=== PATIENT | female | born 1950 | race Caucasian/White ===

== ENCOUNTER 2017-11-07 06:50 | Day surgery (SDC) | payer MEDICARE, BC ==
[~2017-11-07 06:50] MED LIST: Buffered Lidocaine 0.9% SYRIN* 5 ML/SYR SYRINGE INTRADERM ONE
[2017-11-07] MEDS ORDERED: ceFAZolin 2 GM in NS PREMIX(*) 2 GM/100 ML BAG IVPB ONE (07:01)
[2017-11-07] MEDS ORDERED: fentaNYL* 50 MCG/ML 2 ML VIAL (100 MCG VIAL) ONE (08:26)
[2017-11-07] MEDS ORDERED: Midazolam* 1 MG/ML 2 ML VIAL (2 MG) ONE (08:26)
[2017-11-07] MEDS ORDERED: Bupivacaine 0.25% EPI 200,000* 30 ML SDV ONE (08:27)
[2017-11-07] MEDS ORDERED: Lidocain 1% EPI 1:100,000 * 30 ML MDV ONE (08:27)
[2017-11-07] MEDS ORDERED: Acetaminophen TAB* 325 MG PO PRN (08:42)
[2017-11-07] MEDS ORDERED: Naloxone* 0.4 MG/ML 1 ML VIAL IV PRN (08:42)
[2017-11-07] MEDS ORDERED: DiMENhydriNATE IV* 50 MG/ML VIAL IV PUSH PRN (08:42)
[2017-11-07] MEDS ORDERED: Morphine INJ* 2 MG/ML 1 ML SYRINGE (TWO MG - NEW SYRINGE VERSION) IV PRN (08:42)
[2017-11-07] MEDS ORDERED: Ondansetron INJ* 2 MG/ML VIAL IV PRN (08:42)
[2017-11-07] MEDS ORDERED: HYDROcodone/ACETAMIN 5-325 MG* 1 TAB PO PRN (08:42)
[2017-11-07] MEDS ORDERED: Ketorolac INJ* 30 MG/ML 1 ML VIAL IV PRN (08:42)
[2017-11-07] MEDS ORDERED: fentaNYL* 50 MCG/ML 2 ML VIAL (100 MCG VIAL) IV PRN (08:42)
[2017-11-07] MEDS ORDERED: Bupivacaine 0.25% SDV* 30 ML ONE (09:03)
[2017-11-07] MEDS ORDERED: Propofol* 10 MG/ML 20 ML BTL IV PUSH ONE ×2 (09:08→09:57)
[2017-11-07 10:42] VITALS: BP 130/68
== END 2017-11-07 11:03 | disposition home or self-care (01) ==
LOC: OR 06:50
PROVIDERS: ATTEND Plastic Surgery
DX: C44.719 Basal cell carcinoma of skin of left lower limb, including hip (principal); E03.9 Hypothyroidism, unspecified; Z87.891 Personal history of nicotine dependence; F41.8 Other specified anxiety disorders; M19.90 Unspecified osteoarthritis, unspecified site
CPT/HCPCS: 88305; 88331; 88332; J0690; J2250; J2704; J3010

== ENCOUNTER 2020-02-19 15:36 | Observation (INO) ==
[2020-02-19] MEDS ORDERED: NS 0.9% 1000 ml BAG 1,000 ML IV ONE (16:00)
[2020-02-19 16:53] LABS: Hematocrit 42 % (35-47); Hemoglobin 14.4 g/dL (12.0-16.0); Mean Corpuscular HGB Conc 34 g/dL (31-36); Mean Corpuscular Hemoglobin 33 pg (27-31); Mean Corpuscular Volume 96 fL (80-97); Red Blood Count 4.38 10^6 /uL (3.70-4.87); Red Cell Distribution Width 14 % (10-15); White Blood Count 3.7 10^3/uL (3.5-10.8)
[2020-02-19 17:06] LABS: Troponin I 0.01 ng/mL (<0.03)
[2020-02-19 17:09] LABS: Potassium 3.5 mmol/L (3.5-5.0)
[2020-02-19 17:10] LABS: Albumin 3.9 g/dL (3.2-5.2); Albumin/Globulin Ratio 1.3 (1-3); BUN/Creatinine Ratio 13.7 (8-20); C Reactive Protein 12.19 mg/L (<8.01); Calcium 9.3 mg/dL (8.6-10.3); EGFR African American 143.4 (>60); EGFR Non-African American 118.5 (>60); Globulin 2.9 g/dL (2-4); Total Bilirubin 2.5 mg/dL (0.2-1.0); Total Protein 6.8 g/dL (6.4-8.9)
[2020-02-19 17:45] LABS: ABS Eosinophils 0.1 10^3/ul (0-0.6); ABS Lymphocytes 0.8 10^3/ul (1.0-4.8); ABS Monocytes 0.3 10^3/ul (0-0.8); ABS Neutrophils 2.4 10^3/ul (1.5-7.7); Eosinophil % 2.1 %; Lymphocyte % 22.8 %; Mean Platelet Volume 7.6 fL (7.4-10.4); Platelet Count 96 10^3/uL (150-450)
[2020-02-19 18:29] LABS: Influenza A Molecular Negative (Negative); Influenza B Molecular Negative (Negative)
[2020-02-19 21:03] LABS: Urine Bacteria Absent (Absent); Urine Red Blood Cell 3+(>10/hpf) (Absent); Urine White Blood Cell 1+(6-10/hpf) (Absent)
[2020-02-19 21:21] LABS: Urine Squamous Epithelial Cell Present (Absent)
[2020-02-19 21:22] LABS: Urine Appearance Clear; Urine Bilirubin Negative (Negative); Urine Blood 2+ (Negative); Urine Color Yellow; Urine Glucose Negative (Negative); Urine Ketones 1+ (Negative); Urine Nitrite Negative (Negative); Urine Protein Negative (Negative); Urine Urobilinogen Positive (Negative)
[2020-02-20] MEDS ORDERED: Ondansetron 4 mg VIAL 2 MG/ML 2 ml VIAL IV PRN (01:14)
[2020-02-20] MEDS ORDERED: NS 0.9% 1000 ml BAG 1,000 ML IV SCH (01:15)
[2020-02-20] MEDS ORDERED: Enoxaparin 40 MG/0.4 ML SYR SUBCUT SCH (02:00)
[2020-02-20] MEDS: Venlafaxine XR 75 mg PO SCH (07:41)
[2020-02-20] MEDS: Multivitamins/Minerals TAB PO SCH (07:41)
[2020-02-20] MEDS: Cholecalciferol (VIT D3) 1,000 unit TAB PO SCH (07:42)
[2020-02-20] MEDS: Amoxicillin/Clavul 875/125 TAB (Augmentin 875 tab) PO SCH ×2 (11:43→21:54)
[2020-02-20 12:04] LABS: Albumin 3.5 g/dL (3.2-5.2); Albumin/Globulin Ratio 1.3 (1-3); Globulin 2.8 g/dL (2-4); Indirect Bilirubin 1.9 mg/dL (0.3-1.0); Total Bilirubin 2.5 mg/dL (0.2-1.0); Total Protein 6.3 g/dL (6.4-8.9)
[2020-02-20 12:36] LABS: TSH Ultra Thyroid Stim Horm 0.96 mcIU/mL (0.34-5.60)
[2020-02-21 05:50] LABS: ABS Eosinophils 0.2 10^3/ul (0-0.6); ABS Lymphocytes 0.8 10^3/ul (1.0-4.8); ABS Monocytes 0.5 10^3/ul (0-0.8); ABS Neutrophils 2.8 10^3/ul (1.5-7.7); Hematocrit 39 % (35-47); Hemoglobin 13.2 g/dL (12.0-16.0); Lymphocyte % 19.4 %; Mean Corpuscular HGB Conc 34 g/dL (31-36); Mean Corpuscular Hemoglobin 33 pg (27-31); Mean Corpuscular Volume 96 fL (80-97); Mean Platelet Volume 8.3 fL (7.4-10.4); Nucleated Red Blood Cells % 0.2; Platelet Count 91 10^3/uL (150-450); Red Blood Count 4.01 10^6 /uL (3.70-4.87); Red Cell Distribution Width 15 % (10-15); White Blood Count 4.4 10^3/uL (3.5-10.8)
[2020-02-21 06:03] LABS: BUN/Creatinine Ratio 14.6 (8-20); EGFR African American 153.8 (>60); EGFR Non-African American 127.1 (>60); Potassium 3.1 mmol/L (3.5-5.0)
[2020-02-21] MEDS: Multivitamins/Minerals TAB PO SCH (09:21)
[2020-02-21] MEDS: Cholecalciferol (VIT D3) 1,000 unit TAB PO SCH (09:21)
[2020-02-21] MEDS: Amoxicillin/Clavul 875/125 TAB (Augmentin 875 tab) PO SCH ×2 (09:21→21:28)
[2020-02-21] MEDS: Venlafaxine XR 75 mg PO SCH (09:22)
[2020-02-21] MEDS: Dextran 70/Hypromellose Tears Eye Drops 15 ml BTL (for Artificials Tears) BOTH EYES PRN (09:24)
[2020-02-21 12:16] LABS: Albumin 3.6 g/dL (3.2-5.2); Albumin/Globulin Ratio 1.3 (1-3); BUN/Creatinine Ratio 17.4 (8-20); Calcium 8.7 mg/dL (8.6-10.3); EGFR African American 161.6 (>60); EGFR Non-African American 133.5 (>60); Globulin 2.8 g/dL (2-4); Potassium 4.2 mmol/L (3.5-5.0); Total Bilirubin 2.1 mg/dL (0.2-1.0); Total Protein 6.4 g/dL (6.4-8.9)
[2020-02-22] MEDS: Venlafaxine XR 75 mg PO SCH (08:33)
[2020-02-22] MEDS: Amoxicillin/Clavul 875/125 TAB (Augmentin 875 tab) PO SCH ×2 (08:33→21:00)
[2020-02-22] MEDS: Multivitamins/Minerals TAB PO SCH (08:33)
[2020-02-22] MEDS: Cholecalciferol (VIT D3) 1,000 unit TAB PO SCH (08:34)
[2020-02-22] MEDS: Dextran 70/Hypromellose Tears Eye Drops 15 ml BTL (for Artificials Tears) BOTH EYES PRN ×2 (08:35→16:24)
[2020-02-23 07:49] VITALS: BP 124/62
[2020-02-23] MEDS: Dextran 70/Hypromellose Tears Eye Drops 15 ml BTL (for Artificials Tears) BOTH EYES PRN (09:14)
[2020-02-23] MEDS: Cholecalciferol (VIT D3) 1,000 unit TAB PO SCH (09:14)
[2020-02-23] MEDS: Amoxicillin/Clavul 875/125 TAB (Augmentin 875 tab) PO SCH (09:15)
[2020-02-23] MEDS: Venlafaxine XR 75 mg PO SCH (09:15)
[2020-02-23] MEDS: Multivitamins/Minerals TAB PO SCH (09:15)
== END 2020-02-23 09:55 | disposition home or self-care (01) ==
LOC: MED 15:36 → ED 15:36 → MED 02-20 06:41 → SSU 02-21 03:37
PROVIDERS: ADMIT Internal Medicine; ATTEND Internal Medicine

== ENCOUNTER 2020-04-02 03:54 | Inpatient (IN) ==
[2020-04-02] MEDS ORDERED: oxyCODONE/Acetamin 5/325 mg TAB PO ONE (04:49)
[2020-04-02 05:28] LABS: ABS Lymphocytes 0.9 10^3/ul (1.0-4.8); ABS Monocytes 0.6 10^3/ul (0-0.8); ABS Neutrophils 4.8 10^3/ul (1.5-7.7); Eosinophil % 0.5 %; Hematocrit 39 % (35-47); Hemoglobin 13.1 g/dL (12.0-16.0); Lymphocyte % 13.5 %; Mean Corpuscular HGB Conc 34 g/dL (31-36); Mean Corpuscular Hemoglobin 33 pg (27-31); Mean Corpuscular Volume 97 fL (80-97); Platelet Count 159 10^3/uL (150-450); Red Blood Count 4.01 10^6 /uL (3.70-4.87); Red Cell Distribution Width 15 % (10-15); White Blood Count 6.4 10^3/uL (3.5-10.8)
[2020-04-02 05:34] LABS: Albumin 3.9 g/dL (3.2-5.2); Albumin/Globulin Ratio 1.3 (1-3); BUN/Creatinine Ratio 10.2 (8-20); Calcium 8.8 mg/dL (8.6-10.3); EGFR African American 150.2 (>60); EGFR Non-African American 124.1 (>60); Globulin 2.9 g/dL (2-4); Total Bilirubin 1.1 mg/dL (0.2-1.0); Total Protein 6.8 g/dL (6.4-8.9)
[2020-04-02] MEDS ORDERED: Ondansetron 4 mg VIAL 2 MG/ML 2 ml VIAL IV PRN ×2 (06:23→13:27)
[2020-04-02 07:00] LABS: Vitamin D Total 25(OH) 61.6 ng/mL (20-50)
[2020-04-02] MEDS: Venlafaxine XR 75 mg PO SCH (09:19)
[2020-04-02] MEDS: Cholecalciferol (VIT D3) 1,000 unit TAB PO SCH (09:19)
[2020-04-02] MEDS: Multivitamins/Minerals TAB PO SCH (09:19)
[2020-04-02] MEDS ORDERED: ceFAZolin 2 GM PREMIX 2 GM/50 ML BAG ONE (12:57)
[2020-04-02] MEDS ORDERED: Propofol 10 MG/ML 20 ML BTL ONE (13:17)
[2020-04-02] MEDS ORDERED: Rocuronium 50 mg VIAL 10 mg/ml 5 ml VIAL (50 mg) ONE (13:17)
[2020-04-02] MEDS ORDERED: fentaNYL 100 mcg/2 ml 50 MCG/ML VIAL ONE (13:17)
[2020-04-02] MEDS ORDERED: ROPIVACAINE 5 MG/ML 30 ML BTL (0.5%) ONE (13:17)
[2020-04-02] MEDS ORDERED: Lidocaine 2% PF 5 ML VIAL ONE (13:20)
[2020-04-02] MEDS ORDERED: HYDROmorphone 1 MG/1 ML SYRINGE IV PRN (13:27)
[2020-04-02] MEDS ORDERED: fentaNYL 100 mcg/2 ml 50 MCG/ML VIAL IV PRN (13:27)
[2020-04-02] MEDS ORDERED: Naloxone 0.4 mg VIAL 0.4 mg/ml 1 ml VIAL IV PRN (13:27)
[2020-04-02] MEDS ORDERED: Phenylephrine 40 mcg/mL 10mL (400mcg) SYRINGE ONE (13:58)
[2020-04-02] MEDS ORDERED: Dexamethasone IV 4 MG/ML VIAL 1 ml VIAL ONE (14:21)
[2020-04-02] MEDS ORDERED: Ondansetron 4 mg VIAL 2 MG/ML 2 ml VIAL ONE (14:21)
[2020-04-02] MEDS ORDERED: Bupivacaine 0.5% SDV PF 30ML VIAL ONE (14:53)
[2020-04-02] MEDS: ceFAZolin 1 GM X 3 DOSES POST-OP Q8H (AddVan) IVPB SCH (22:09)
[2020-04-03] MEDS: ceFAZolin 1 GM X 3 DOSES POST-OP Q8H (AddVan) IVPB SCH ×2 (06:01→14:16)
[2020-04-03 06:34] LABS: ABS Monocytes 0.9 10^3/ul (0-0.8); ABS Neutrophils 4.7 10^3/ul (1.5-7.7); Eosinophil % 0.3 %; Hematocrit 36 % (35-47); Hemoglobin 12.2 g/dL (12.0-16.0); Lymphocyte % 15.3 %; Mean Corpuscular HGB Conc 34 g/dL (31-36); Mean Corpuscular Hemoglobin 33 pg (27-31); Mean Corpuscular Volume 97 fL (80-97); Mean Platelet Volume 8.8 fL (7.4-10.4); Nucleated Red Blood Cells % 0.1; Platelet Count 130 10^3/uL (150-450); Red Blood Count 3.67 10^6 /uL (3.70-4.87); Red Cell Distribution Width 14 % (10-15); White Blood Count 6.6 10^3/uL (3.5-10.8)
[2020-04-03 06:47] LABS: BUN/Creatinine Ratio 16.9 (8-20); Calcium 8.4 mg/dL (8.6-10.3); EGFR African American 121.2 (>60); EGFR Non-African American 100.2 (>60); Potassium 4.1 mmol/L (3.5-5.0)
[2020-04-03] MEDS: Multivitamins/Minerals TAB PO SCH (08:36)
[2020-04-03] MEDS: Cholecalciferol (VIT D3) 1,000 unit TAB PO SCH (08:36)
[2020-04-03] MEDS: Enoxaparin 40 MG/0.4 ML SYR SUBCUT SCH (08:37)
[2020-04-03] MEDS: Venlafaxine XR 75 mg PO SCH (08:37)
[2020-04-03] MEDS ORDERED: Senna TAB 8.6 mg TAB PO PRN (12:41)
[2020-04-03] MEDS: Polyethylene Glycol 3350 17 GM PACKET PO SCH (13:04)
[2020-04-04 08:20] LABS: ABS Eosinophils 0.1 10^3/ul (0-0.6); ABS Monocytes 0.6 10^3/ul (0-0.8); ABS Neutrophils 4.2 10^3/ul (1.5-7.7); Eosinophil % 1.6 %; Hematocrit 35 % (35-47); Hemoglobin 11.7 g/dL (12.0-16.0); Lymphocyte % 17.6 %; Mean Corpuscular HGB Conc 34 g/dL (31-36); Mean Corpuscular Hemoglobin 33 pg (27-31); Mean Corpuscular Volume 97 fL (80-97); Mean Platelet Volume 8.9 fL (7.4-10.4); Nucleated Red Blood Cells % 0.1; Platelet Count 118 10^3/uL (150-450); Red Blood Count 3.56 10^6 /uL (3.70-4.87); Red Cell Distribution Width 14 % (10-15)
[2020-04-04 08:21] LABS: Calcium 8.2 mg/dL (8.6-10.3); EGFR African American 131.5 (>60); EGFR Non-African American 108.6 (>60); Potassium 4.2 mmol/L (3.5-5.0)
[2020-04-04] MEDS: Multivitamins/Minerals TAB PO SCH (09:47)
[2020-04-04] MEDS: Enoxaparin 40 MG/0.4 ML SYR SUBCUT SCH (09:47)
[2020-04-04] MEDS: Venlafaxine XR 75 mg PO SCH (09:47)
[2020-04-04] MEDS: Polyethylene Glycol 3350 17 GM PACKET PO SCH (09:47)
[2020-04-04] MEDS: Cholecalciferol (VIT D3) 1,000 unit TAB PO SCH (09:47)
[2020-04-05] MEDS: Enoxaparin 40 MG/0.4 ML SYR SUBCUT SCH (09:05)
[2020-04-05] MEDS: Cholecalciferol (VIT D3) 1,000 unit TAB PO SCH (09:05)
[2020-04-05] MEDS: Venlafaxine XR 75 mg PO SCH (09:05)
[2020-04-05] MEDS: Multivitamins/Minerals TAB PO SCH (09:05)
[2020-04-05] MEDS: Polyethylene Glycol 3350 17 GM PACKET PO SCH (09:05)
[2020-04-05] MEDS ORDERED: Morphine 2 MG/ML SYRINGE IV PRN (16:50)
[2020-04-06] MEDS: Enoxaparin 40 MG/0.4 ML SYR SUBCUT SCH (09:35)
[2020-04-06] MEDS: Multivitamins/Minerals TAB PO SCH (09:36)
[2020-04-06] MEDS: Venlafaxine XR 75 mg PO SCH (09:36)
[2020-04-06] MEDS: Cholecalciferol (VIT D3) 1,000 unit TAB PO SCH (09:36)
[2020-04-06] MEDS: Polyethylene Glycol 3350 17 GM PACKET PO SCH (10:17)
[2020-04-07] MEDS: Cholecalciferol (VIT D3) 1,000 unit TAB PO SCH (08:05)
[2020-04-07] MEDS: Enoxaparin 40 MG/0.4 ML SYR SUBCUT SCH (08:05)
[2020-04-07] MEDS: Multivitamins/Minerals TAB PO SCH (08:05)
[2020-04-07] MEDS: Venlafaxine XR 75 mg PO SCH (08:05)
[2020-04-07] MEDS: Polyethylene Glycol 3350 17 GM PACKET PO SCH (08:05)
[2020-04-07 15:57] VITALS: BP 122/56
== END 2020-04-07 17:05 | DRG 494 ==
LOC: ED 03:54 → SSU 03:54 → OBSVTOIN 06:23 → SSU 09:01
PROVIDERS: ADMIT Internal Medicine; ATTEND Internal Medicine

== ENCOUNTER 2021-07-23 04:32 | Inpatient (IN) ==
[2021-07-23 05:25] LABS: ABS Lymphocytes 0.7 10^3/ul (1.0-4.8); ABS Monocytes 0.6 10^3/ul (0-0.8); ABS Neutrophils 5.2 10^3/ul (1.5-7.7); Eosinophil % 0.3 %; Hematocrit 43 % (35-47); Hemoglobin 14.4 g/dL (12.0-16.0); Lymphocyte % 10.9 %; Mean Corpuscular HGB Conc 34 g/dL (31-36); Mean Corpuscular Hemoglobin 34 pg (27-31); Mean Corpuscular Volume 100 fL (80-97); Mean Platelet Volume 8.4 fL (7.4-10.4); Platelet Count 158 10^3/uL (150-450); Red Blood Count 4.26 10^6 /uL (3.70-4.87); Red Cell Distribution Width 14 % (10-15); White Blood Count 6.5 10^3/uL (3.5-10.8)
[2021-07-23 05:34] LABS: Activated Partial Thrombo Time 27.9 seconds (26.0-38.0); INR 1.49 (0.86-1.15)
[2021-07-23 06:12] LABS: ALT 18 U/L (7-52); Albumin 3.1 g/dL (3.2-5.2); Albumin/Globulin Ratio 1.4 (1-3); Alkaline Phosphatase 119 U/L (35-149); Amylase < 10 U/L (29-103); Blood Urea Nitrogen 12 mg/dL (6-24); C Reactive Protein 6.99 mg/L (<8.01); CO2 Carbon Dioxide 21 mmol/L (22-32); Calcium 7.7 mg/dL (8.6-10.3); Chloride 106 mmol/L (101-111); Globulin 2.2 g/dL (2-4); Glucose 78 mg/dL (70-100); Lipase 12 U/L (11.0-82.0); Sodium 138 mmol/L (135-145); Total Protein 5.3 g/dL (6.4-8.9); eGFR CKD-EPI 97.6 (>60)
[2021-07-23 06:26] LABS: Anion Gap 11 mmol/L (2-11)
[2021-07-23 07:58] LABS: Potassium Redraw 3.6 mmol/L (3.5-5.0)
[2021-07-23 10:16] LABS: High Sensitivity Troponin 1 Hr 16 pg/mL (<15)
[2021-07-23] MEDS ORDERED: Lorazepam PYXIS KEY PRN (10:45)
[2021-07-23] MEDS ORDERED: LORazepam 2 mg VIAL 1 ml IV PUSH ONE (10:45)
[2021-07-23] MEDS ORDERED: Thiamine 100 MG/ML 2 ml VIAL (200 mg) IM ONE (12:21)
[2021-07-23] MEDS ORDERED: Morphine 2 MG/ML SYRINGE IV PRN (12:21)
[2021-07-23] MEDS ORDERED: Magnesium Hydroxide LIQ 30 ML UDC PO PRN (12:23)
[2021-07-23] MEDS ORDERED: Ondansetron 4 mg VIAL 2 MG/ML 2 ml VIAL IV PRN (12:23)
[2021-07-23] MEDS ORDERED: Al Hydrox/Mg Hydrox/Simet LIQ 30 ML UDC PO PRN (12:23)
[2021-07-23] MEDS ORDERED: Pantoprazole VIAL 40 MG VIAL IV SCH (13:00)
[2021-07-23 13:16] LABS: Alcohol, S < 13 mg/dL (<13); Prealbumin 12 mg/dL (18-38)
[2021-07-23 13:32] LABS: Magnesium 1.2 mg/dL (1.9-2.7)
[2021-07-23] MEDS ORDERED: Magnesium Sulfate 2 gm BAG 2 GM/50 ML BAG IVPB ONE ×2 (13:39→14:22)
[2021-07-23 15:06] LABS: Erythrocyte Sed Rate 0 mm/Hr (0-29)
[2021-07-23] MEDS: LORazepam 2 mg VIAL 1 ml IV PUSH SCH ×2 (15:22→17:22)
[2021-07-23] MEDS: NS 0.9% 1000 ml BAG 1,000 ML IV SCH ×3 (16:27→21:06)
[2021-07-23] MEDS ORDERED: Flumazenil 0.5 mg/5 ml 0.1 MG/ML 5 ml VIAL ONE ×2 (19:19→21:12)
[2021-07-23] MEDS ORDERED: Flumazenil 0.5 mg/5 ml 0.1 MG/ML 5 ml VIAL IV ONE (20:00)
[2021-07-23 20:50] LABS: ABS Lymphocytes 0.8 10^3/ul (1.0-4.8); ABS Monocytes 0.9 10^3/ul (0-0.8); ABS Neutrophils 7.1 10^3/ul (1.5-7.7); Eosinophil % 0.3 %; Hematocrit 38 % (35-47); Hemoglobin 12.6 g/dL (12.0-16.0); Lymphocyte % 8.8 %; Mean Corpuscular HGB Conc 33 g/dL (31-36); Mean Corpuscular Hemoglobin 33 pg (27-31); Mean Corpuscular Volume 101 fL (80-97); Mean Platelet Volume 8.2 fL (7.4-10.4); Platelet Count 147 10^3/uL (150-450); Red Blood Count 3.79 10^6 /uL (3.70-4.87); Red Cell Distribution Width 14 % (10-15); White Blood Count 8.8 10^3/uL (3.5-10.8)
[2021-07-23 21:02] LABS: INR 1.46 (0.86-1.15)
[2021-07-23] MEDS: Pantoprazole VIAL 40 MG VIAL IV SCH (21:06)
[2021-07-23 21:52] LABS: Albumin 3.1 g/dL (3.2-5.2); Albumin/Globulin Ratio 1.5 (1-3); Calcium 8.1 mg/dL (8.6-10.3); Globulin 2.1 g/dL (2-4); Magnesium 2.7 mg/dL (1.9-2.7); Potassium 3.7 mmol/L (3.5-5.0); Total Bilirubin 1.9 mg/dL (0.2-1.0); Total Protein 5.2 g/dL (6.4-8.9); eGFR CKD-EPI 76.6 (>60)
[2021-07-23] MEDS ORDERED: Enoxaparin 40 MG/0.4 ML SYR SUBCUT SCH (22:00)
[2021-07-23 22:06] LABS: TSH Ultra Thyroid Stim Horm 1.92 mcIU/mL (0.34-5.60)
[2021-07-23 22:20] LABS: PCO2 Arterial 45 mmHg (35-45); PO2 Arterial 86 mmHg (80-100)
[2021-07-24 03:32] LABS: Urine Appearance Clear; Urine Bilirubin Negative (Negative); Urine Blood Negative (Negative); Urine Color Yellow; Urine Glucose Negative (Negative); Urine Ketones Negative (Negative); Urine Nitrite Negative (Negative); Urine Protein Negative (Negative); Urine Specific Gravity 1.016 (1.002-1.030); Urine Urobilinogen Positive (Negative)
[2021-07-24 03:40] LABS: Urine Benzodiazepine Screen None Detected (None Detect); Urine Cannabinoids Screen None Detected (None Detect); Urine Opiates Screen Presumptive Positive (None Detect)
[2021-07-24 04:28] LABS: Urine Bacteria Absent (Absent); Urine Red Blood Cell Trace(0-2/hpf) (Absent); Urine White Blood Cell 2+(11-20/hpf) (Absent)
[2021-07-24 06:00] LABS: ABS Eosinophils 0.1 10^3/ul (0-0.6); ABS Lymphocytes 1.5 10^3/ul (1.0-4.8); ABS Monocytes 0.5 10^3/ul (0-0.8); ABS Neutrophils 3.5 10^3/ul (1.5-7.7); Eosinophil % 1.8 %; Hematocrit 36 % (35-47); Hemoglobin 12.1 g/dL (12.0-16.0); Lymphocyte % 27.1 %; Mean Corpuscular HGB Conc 34 g/dL (31-36); Mean Corpuscular Hemoglobin 34 pg (27-31); Mean Corpuscular Volume 102 fL (80-97); Mean Platelet Volume 8.1 fL (7.4-10.4); Platelet Count 116 10^3/uL (150-450); Red Blood Count 3.53 10^6 /uL (3.70-4.87); Red Cell Distribution Width 14 % (10-15); White Blood Count 5.7 10^3/uL (3.5-10.8)
[2021-07-24 06:33] LABS: ALT 18 U/L (7-52); AST 59 U/L (13-39); Albumin 2.9 g/dL (3.2-5.2); Albumin/Globulin Ratio 1.5 (1-3); Alkaline Phosphatase 110 U/L (35-149); Anion Gap 3 mmol/L (2-11); Blood Urea Nitrogen 13 mg/dL (6-24); CO2 Carbon Dioxide 28 mmol/L (22-32); Calcium 7.7 mg/dL (8.6-10.3); Chloride 107 mmol/L (101-111); Globulin 1.9 g/dL (2-4); Glucose 67 mg/dL (70-100); Potassium 4.4 mmol/L (3.5-5.0); Sodium 138 mmol/L (135-145); Total Protein 4.8 g/dL (6.4-8.9); eGFR CKD-EPI 92.2 (>60)
[2021-07-24 06:57] LABS: Folate > 20.00 ng/mL (5.90-24.80)
[2021-07-24 06:58] LABS: Vitamin B12 544 pg/mL (180-914)
[2021-07-24] MEDS: Venlafaxine XR 75 mg PO SCH (08:13)
[2021-07-24] MEDS: Multivitamins/Minerals TAB PO SCH (08:13)
[2021-07-24] MEDS ORDERED: Thiamine 100 MG/ML 2 ml VIAL 500 MG in NS 0.9% 250 ml 250 ML IV ONE (08:24)
[2021-07-24] MEDS: NORMOSOL-R pH 7.4 1000 mL BAG 1,000 ML IV SCH ×2 (08:29→20:27)
[2021-07-24] MEDS: Pantoprazole VIAL 40 MG VIAL IV SCH ×2 (08:29→20:26)
[2021-07-24] MEDS ORDERED: Dexmedetomidine 1,000 MCG in NS 0.9% 250 ml 240 ML IV SCH (11:00)
[2021-07-24] MEDS ORDERED: Lorazepam PYXIS KEY ONE (15:33)
[2021-07-24] MEDS ORDERED: LORazepam 2 mg VIAL 1 ml ONE ×2 (15:33→23:57)
[2021-07-24] MEDS ORDERED: LORazepam 2 mg VIAL 1 ml IV PUSH ONE ×2 (15:45→23:55)
[2021-07-24] MEDS ORDERED: Lorazepam PYXIS KEY PRN ×3 (15:45→23:55)
[2021-07-24] MEDS ORDERED: Haloperidol 5 mg/ml SDV IV/IM 5 MG/ML AMP IV SLOW PU ONE (15:45)
[2021-07-24] MEDS ORDERED: Haloperidol 5 mg/ml SDV IV/IM 5 MG/ML AMP ONE (15:47)
[2021-07-24] MEDS ORDERED: Succinylcholine 200 mg VIAL 20 mg/ml 10 ml VIAL (200 mg) ONE (16:19)
[2021-07-24] MEDS ORDERED: Propofol 10 mg/ml 100 ML BTL 100 ML ONE (16:24)
[2021-07-24] MEDS ORDERED: Rocuronium 50 mg VIAL 10 mg/ml 5 ml VIAL (50 mg) ONE (16:24)
[2021-07-24] MEDS ORDERED: Propofol 10 MG/ML 20 ML BTL ONE (16:30)
[2021-07-24] MEDS ORDERED: Midazolam 10 mg/10 ml VIAL 1 mg/ml 10 ml VIAL (10 mg) ONE (16:30)
[2021-07-24] MEDS ORDERED: Etomidate 40 mg/20 ml (2 MG/ML) 20 ml VIAL (40 mg) ONE (16:30)
[2021-07-24] MEDS: Propofol 10 mg/ml 100 ML BTL 100 ML IV SCH ×2 (16:30→23:43)
[2021-07-24] MEDS ORDERED: cefTRIAXone 1 gm/50 mL D5W 1 GM/50 ML BAG IV SCH (16:30)
[2021-07-24] MEDS ORDERED: Enoxaparin 40 MG/0.4 ML SYR SUBCUT SCH (18:00)
[2021-07-24] MEDS ORDERED: fentaNYL 100 mcg/2 ml 50 MCG/ML VIAL IV SLOW PU PRN (19:50)
[2021-07-24] MEDS ORDERED: LORazepam 2 mg VIAL 1 ml IV PUSH PRN ×2 (20:06→21:11)
[2021-07-24] MEDS: Chlorhexidine MOUTHWASH 0.12% 15 ML UDC TOPICAL SCH ×2 (20:26→23:07)
[2021-07-24] MEDS ORDERED: Lactated Ringers 500 ml BAG 500 ML IV ONE (21:11)
[2021-07-24] MEDS: Thiamine 100 MG/ML 2 ml VIAL 500 MG in NS 0.9% 250 ml 250 ML IV SCH (23:37)
[2021-07-25] MEDS: Acetaminophen IV 1 GM/100ML 100 ML IV PRN (00:35)
[2021-07-25] MEDS ORDERED: Lactated Ringers 500 ml BAG 500 ML IV ONE (01:03)
[2021-07-25 02:56] LABS: ABS Eosinophils 0.1 10^3/ul (0-0.6); ABS Lymphocytes 0.4 10^3/ul (1.0-4.8); ABS Monocytes 0.2 10^3/ul (0-0.8); ABS Neutrophils 4.1 10^3/ul (1.5-7.7); Eosinophil % 1.6 %; Hematocrit 31 % (35-47); Hemoglobin 10.6 g/dL (12.0-16.0); Lymphocyte % 8.7 %; Mean Corpuscular HGB Conc 34 g/dL (31-36); Mean Corpuscular Hemoglobin 36 pg (27-31); Mean Corpuscular Volume 104 fL (80-97); Mean Platelet Volume 8.9 fL (7.4-10.4); Nucleated Red Blood Cells % 0.4; Platelet Count 89 10^3/uL (150-450); Red Blood Count 2.98 10^6 /uL (3.70-4.87); Red Cell Distribution Width 14 % (10-15); White Blood Count 4.8 10^3/uL (3.5-10.8)
[2021-07-25] MEDS ORDERED: Norepinephrine 16MCG/ML BAGD5W 4,000 MCG/250 ML BAG IV SCH (03:00)
[2021-07-25 03:10] LABS: ALT 18 U/L (7-52); Albumin 2.6 g/dL (3.2-5.2); Albumin/Globulin Ratio 1.9 (1-3); Alkaline Phosphatase 85 U/L (35-149); Anion Gap 8 mmol/L (2-11); Blood Urea Nitrogen 17 mg/dL (6-24); CO2 Carbon Dioxide 20 mmol/L (22-32); Calcium 6.9 mg/dL (8.6-10.3); Chloride 102 mmol/L (101-111); Globulin 1.4 g/dL (2-4); Glucose 68 mg/dL (70-100); Magnesium 1.5 mg/dL (1.9-2.7); Sodium 130 mmol/L (135-145); eGFR CKD-EPI 94.7 (>60)
[2021-07-25 03:46] LABS: Potassium, Whole Blood 3.4 mmol/L (3.4-4.5)
[2021-07-25 03:59] LABS: Albumin 2.5 g/dL (3.2-5.2); Albumin/Globulin Ratio 1.5 (1-3); Calcium 7.1 mg/dL (8.6-10.3); Globulin 1.7 g/dL (2-4); Potassium 3.6 mmol/L (3.5-5.0); Total Bilirubin 1.1 mg/dL (0.2-1.0); Total Protein 4.2 g/dL (6.4-8.9); eGFR CKD-EPI 94.3 (>60)
[2021-07-25] MEDS: Chlorhexidine MOUTHWASH 0.12% 15 ML UDC TOPICAL SCH ×6 (05:15→23:18)
[2021-07-25] MEDS: Propofol 10 mg/ml 100 ML BTL 100 ML IV SCH ×2 (05:16→17:33)
[2021-07-25] MEDS: Multivitamins/Minerals TAB PO SCH ×2 (08:30→18:27)
[2021-07-25] MEDS: Thiamine 100 MG/ML 2 ml VIAL 500 MG in NS 0.9% 250 ml 250 ML IV SCH ×3 (08:30→23:11)
[2021-07-25] MEDS: Venlafaxine XR 75 mg PO SCH ×2 (08:31→18:26)
[2021-07-25] MEDS: Pantoprazole VIAL 40 MG VIAL IV SCH (08:31)
[2021-07-25] MEDS ORDERED: Rocuronium 50 mg VIAL 10 mg/ml 5 ml VIAL (50 mg) ONE (09:01)
[2021-07-25] MEDS ORDERED: Hydrocortisone INJ 100 MG/2ML 2 ML VIAL IV ONE (09:14)
[2021-07-25] MEDS ORDERED: Iohexol 180 (CONTRAST) 20 ML SDV IV ONE (09:15)
[2021-07-25] MEDS ORDERED: fentaNYL 100 mcg/2 ml 50 MCG/ML VIAL ONE (09:20)
[2021-07-25] MEDS ORDERED: fentaNYL 100 mcg/2 ml 50 MCG/ML VIAL IV SLOW PU ONE (09:20)
[2021-07-25] MEDS ORDERED: Rocuronium 50 mg VIAL 10 mg/ml 5 ml VIAL (50 mg) IV ONE (10:00)
[2021-07-25] MEDS ORDERED: cefTRIAXone 2 gm/50 mL D5W 2 GM/50 ML BAG IV ONE (10:15)
[2021-07-25 11:38] LABS: ABS Eosinophils 0.1 10^3/ul (0-0.6); ABS Lymphocytes 0.6 10^3/ul (1.0-4.8); ABS Monocytes 0.3 10^3/ul (0-0.8); ABS Neutrophils 3.4 10^3/ul (1.5-7.7); Eosinophil % 1.5 %; Hematocrit 33 % (35-47); Hemoglobin 11.3 g/dL (12.0-16.0); Lymphocyte % 13.1 %; Mean Corpuscular HGB Conc 34 g/dL (31-36); Mean Corpuscular Hemoglobin 35 pg (27-31); Mean Corpuscular Volume 102 fL (80-97); Mean Platelet Volume 8.2 fL (7.4-10.4); Platelet Count 82 10^3/uL (150-450); Red Blood Count 3.27 10^6 /uL (3.70-4.87); Red Cell Distribution Width 14 % (10-15); White Blood Count 4.3 10^3/uL (3.5-10.8)
[2021-07-25] MEDS: NORMOSOL-R pH 7.4 1000 mL BAG 1,000 ML IV SCH ×2 (11:45→23:51)
[2021-07-25] MEDS: KCL 20 MEQ/100 ML IVPREMIX 20 MEQ/100 ML BAG IV SCH ×2 (11:45→14:52)
[2021-07-25 12:55] LABS: High Sensitivity Troponin 1 Hr 52 pg/mL (<15)
[2021-07-25] MEDS: Pantoprazole 80 mg in NS BAG 80 MG/250 ML BAG IV SCH ×2 (12:57→23:04)
[2021-07-25] MEDS ORDERED: Iohexol 350 (CONTRAST) 500 ML MDV IV ONE (15:52)
[2021-07-25] MEDS ORDERED: Hydrocortisone INJ 100 MG/2ML 2 ML VIAL IV SCH (17:00)
[2021-07-25 17:32] LABS: ABS Lymphocytes 0.1 10^3/ul (1.0-4.8); ABS Monocytes 0.1 10^3/ul (0-0.8); ABS Neutrophils 4.8 10^3/ul (1.5-7.7); Eosinophil % 0.1 %; Hematocrit 33 % (35-47); Lymphocyte % 2.4 %; Mean Corpuscular HGB Conc 33 g/dL (31-36); Mean Corpuscular Hemoglobin 33 pg (27-31); Mean Corpuscular Volume 101 fL (80-97); Mean Platelet Volume 8.8 fL (7.4-10.4); Nucleated Red Blood Cells % 0.1; Platelet Count 95 10^3/uL (150-450); Red Blood Count 3.29 10^6 /uL (3.70-4.87); Red Cell Distribution Width 14 % (10-15)
[2021-07-25 18:05] LABS: Albumin 2.5 g/dL (3.2-5.2); Albumin/Globulin Ratio 1.5 (1-3); Calcium 7.1 mg/dL (8.6-10.3); Globulin 1.7 g/dL (2-4); Potassium 4.3 mmol/L (3.5-5.0); Total Bilirubin 0.9 mg/dL (0.2-1.0); Total Protein 4.2 g/dL (6.4-8.9); eGFR CKD-EPI 102.1 (>60)
[2021-07-25 20:14] LABS: Hematocrit 33 % (35-47); Hemoglobin 11.1 g/dL (12.0-16.0); Mean Corpuscular HGB Conc 33 g/dL (31-36); Mean Corpuscular Hemoglobin 34 pg (27-31); Mean Corpuscular Volume 103 fL (80-97); Mean Platelet Volume 8.5 fL (7.4-10.4); Platelet Count 87 10^3/uL (150-450); Red Blood Count 3.22 10^6 /uL (3.70-4.87); Red Cell Distribution Width 14 % (10-15); White Blood Count 5.5 10^3/uL (3.5-10.8)
[2021-07-25 21:07] LABS: Macrocytosis 2+
[2021-07-25 21:08] LABS: ABS Lymphocytes 0.2 10^3/ul (1.0-4.8); ABS Monocytes 0.7 10^3/ul (0-0.8); ABS Neutrophils 4.7 10^3/ul (1.5-7.7)
[2021-07-25] MEDS: Sucralfate 1 gm SUSP 1 GM/10 ML UDC PO SCH (21:22)
[2021-07-26] MEDS: Propofol 10 mg/ml 100 ML BTL 100 ML IV SCH ×3 (04:05→20:14)
[2021-07-26] MEDS: Chlorhexidine MOUTHWASH 0.12% 15 ML UDC TOPICAL SCH ×6 (04:06→23:23)
[2021-07-26 04:40] LABS: ABS Lymphocytes 0.3 10^3/ul (1.0-4.8); ABS Monocytes 0.3 10^3/ul (0-0.8); ABS Neutrophils 5.6 10^3/ul (1.5-7.7); Eosinophil % 0.1 %; Hematocrit 32 % (35-47); Hemoglobin 10.7 g/dL (12.0-16.0); Lymphocyte % 4.2 %; Mean Corpuscular HGB Conc 34 g/dL (31-36); Mean Corpuscular Hemoglobin 34 pg (27-31); Mean Corpuscular Volume 101 fL (80-97); Mean Platelet Volume 8.8 fL (7.4-10.4); Platelet Count 109 10^3/uL (150-450); Red Blood Count 3.14 10^6 /uL (3.70-4.87); Red Cell Distribution Width 14 % (10-15); White Blood Count 6.1 10^3/uL (3.5-10.8)
[2021-07-26 06:10] LABS: Calcium 7.3 mg/dL (8.6-10.3); Magnesium 1.7 mg/dL (1.9-2.7); Potassium 3.6 mmol/L (3.5-5.0)
[2021-07-26 06:18] LABS: Phosphorus 2.2 mg/dL (2.5-5.0)
[2021-07-26] MEDS: Sucralfate 1 gm SUSP 1 GM/10 ML UDC PO SCH (08:23)
[2021-07-26] MEDS: Thiamine 100 MG/ML 2 ml VIAL 500 MG in NS 0.9% 250 ml 250 ML IV SCH ×2 (08:40→15:48)
[2021-07-26] MEDS: Pantoprazole 80 mg in NS BAG 80 MG/250 ML BAG IV SCH ×2 (08:41→17:44)
[2021-07-26] MEDS ORDERED: Magnesium Sulfate IV 3 GM in NS 0.9% 100 ml BAG 100 ML IVPB ONE (08:53)
[2021-07-26] MEDS ORDERED: Magnesium Sulfate 2 GM IV (Premix) IVPB ONE (09:00)
[2021-07-26] MEDS ORDERED: Magnesium Sulfate 1 GM IV 1 GM/100 ML BAG IV ONE (09:00)
[2021-07-26] MEDS ORDERED: Multivitamins ADULT w/MIN LIQ 15 ML UDC PO SCH (09:00)
[2021-07-26] MEDS ORDERED: Potassium Phosphate IV 15 MMOLE in NS 0.9% 250 ml 250 ML IVPB ONE (09:15)
[2021-07-26] MEDS ORDERED: Magnesium Hydroxide LIQ 30 ML UDC NG TUBE PRN (10:01)
[2021-07-26] MEDS ORDERED: Al Hydrox/Mg Hydrox/Simet LIQ 30 ML UDC NG TUBE PRN (10:02)
[2021-07-26] MEDS: CMCS: Venlafaxine 25 mg TAB (NF) NG TUBE SCH (10:54)
[2021-07-26] MEDS ORDERED: CMCS: Venlafaxine 25 mg TAB (NF) PO SCH (11:00)
[2021-07-26] MEDS: Venlafaxine XR 75 mg PO SCH (11:06)
[2021-07-26] MEDS: cefTRIAXone 1 gm/50 mL D5W 1 GM/50 ML BAG IV SCH (12:50)
[2021-07-26] MEDS: Sucralfate 1 gm SUSP 1 GM/10 ML UDC NG TUBE SCH ×3 (15:48→20:20)
[2021-07-26 21:41] LABS: Hematocrit 31 % (35-47); Hemoglobin 10.1 g/dL (12.0-16.0)
[2021-07-27] MEDS: Propofol 10 mg/ml 100 ML BTL 100 ML IV SCH (01:39)
[2021-07-27] MEDS ORDERED: Lactated Ringers 1000 ml BAG 1,000 ML IV ONE (05:04)
[2021-07-27 05:20] LABS: Hematocrit 28 % (35-47); Hemoglobin 9.4 g/dL (12.0-16.0); Mean Corpuscular HGB Conc 33 g/dL (31-36); Mean Corpuscular Hemoglobin 34 pg (27-31); Mean Corpuscular Volume 101 fL (80-97); Mean Platelet Volume 8.8 fL (7.4-10.4); Platelet Count 109 10^3/uL (150-450); Red Blood Count 2.79 10^6 /uL (3.70-4.87); Red Cell Distribution Width 15 % (10-15); White Blood Count 4.5 10^3/uL (3.5-10.8)
[2021-07-27] MEDS: Chlorhexidine MOUTHWASH 0.12% 15 ML UDC TOPICAL SCH ×6 (05:20→23:06)
[2021-07-27] MEDS: Pantoprazole 80 mg in NS BAG 80 MG/250 ML BAG IV SCH ×2 (05:21→14:54)
[2021-07-27] MEDS: Levothyroxine 100 MCG/5 ML VIAL IV SCH (05:22)
[2021-07-27 05:35] LABS: Calcium 7.2 mg/dL (8.6-10.3); Magnesium 1.8 mg/dL (1.9-2.7); Phosphorus 2.4 mg/dL (2.5-5.0); Potassium 3.3 mmol/L (3.5-5.0); eGFR CKD-EPI 93.6 (>60)
[2021-07-27 08:01] LABS: Macrocytosis 1+
[2021-07-27] MEDS ORDERED: Magnesium Sulfate 2 gm BAG 2 GM/50 ML BAG IVPB ONE (08:01)
[2021-07-27] MEDS ORDERED: Potassium Chloride LIQUID 20 MEQ/15 ML LIQUID PO ONE ×2 (08:01→21:17)
[2021-07-27 08:02] LABS: ABS Eosinophils 0.1 10^3/ul (0-0.6); ABS Monocytes 0.5 10^3/ul (0-0.8); ABS Neutrophils 2.9 10^3/ul (1.5-7.7); Eosinophil % 3.1 %; Lymphocyte % 21.9 %; Nucleated Red Blood Cells % 0.1
[2021-07-27] MEDS ORDERED: Furosemide 40 mg/4 ml IV VIAL IV SLOW PU ONE (08:04)
[2021-07-27] MEDS: KCL 20 MEQ/100 ML IVPREMIX 20 MEQ/100 ML BAG IV SCH ×2 (08:47→12:21)
[2021-07-27] MEDS: Sucralfate 1 gm SUSP 1 GM/10 ML UDC NG TUBE SCH ×4 (08:49→20:08)
[2021-07-27] MEDS: CMCS: Venlafaxine 25 mg TAB (NF) NG TUBE SCH (08:49)
[2021-07-27] MEDS: Multivitamins ADULT w/MIN LIQ 15 ML UDC NG TUBE SCH (08:49)
[2021-07-27] MEDS ORDERED: Docusate LIQ 100 MG/10 ML UDC G TUBE PRN (10:11)
[2021-07-27] MEDS: cefTRIAXone 1 gm/50 mL D5W 1 GM/50 ML BAG IV SCH (12:20)
[2021-07-27] MEDS ORDERED: Dexmedetomidine 1,000 MCG in NS 0.9% 250 ml 240 ML IV SCH (15:00)
[2021-07-27 18:57] LABS: ABS Eosinophils 0.1 10^3/ul (0-0.6); ABS Lymphocytes 0.7 10^3/ul (1.0-4.8); ABS Monocytes 0.5 10^3/ul (0-0.8); ABS Neutrophils 3.4 10^3/ul (1.5-7.7); Eosinophil % 2.3 %; Hematocrit 30 % (35-47); Hemoglobin 9.8 g/dL (12.0-16.0); Lymphocyte % 15.7 %; Mean Corpuscular HGB Conc 33 g/dL (31-36); Mean Corpuscular Hemoglobin 34 pg (27-31); Mean Corpuscular Volume 102 fL (80-97); Mean Platelet Volume 8.6 fL (7.4-10.4); Nucleated Red Blood Cells % 0.1; Platelet Count 106 10^3/uL (150-450); Red Blood Count 2.89 10^6 /uL (3.70-4.87); Red Cell Distribution Width 14 % (10-15); White Blood Count 4.7 10^3/uL (3.5-10.8)
[2021-07-27 19:30] LABS: Calcium 7.7 mg/dL (8.6-10.3); Potassium 3.4 mmol/L (3.5-5.0); eGFR CKD-EPI 95.9 (>60)
[2021-07-27] MEDS: Thiamine 100 MG/ML 2 ml VIAL 250 MG in NS 0.9% 100 ml BAG 100 ML IV SCH (23:06)
[2021-07-28] MEDS: Pantoprazole 80 mg in NS BAG 80 MG/250 ML BAG IV SCH ×2 (01:41→11:12)
[2021-07-28] MEDS: Chlorhexidine MOUTHWASH 0.12% 15 ML UDC TOPICAL SCH ×3 (03:24→11:12)
[2021-07-28] MEDS ORDERED: Lactated Ringers 1000 ml BAG 1,000 ML IV SCH (04:00)
[2021-07-28 05:35] LABS: ABS Eosinophils 0.2 10^3/ul (0-0.6); ABS Lymphocytes 1.1 10^3/ul (1.0-4.8); ABS Monocytes 0.4 10^3/ul (0-0.8); ABS Neutrophils 1.8 10^3/ul (1.5-7.7); Eosinophil % 5.8 %; Hematocrit 29 % (35-47); Hemoglobin 9.7 g/dL (12.0-16.0); Lymphocyte % 31.1 %; Mean Corpuscular HGB Conc 33 g/dL (31-36); Mean Corpuscular Hemoglobin 33 pg (27-31); Mean Corpuscular Volume 101 fL (80-97); Mean Platelet Volume 9.1 fL (7.4-10.4); Nucleated Red Blood Cells % 0.1; Platelet Count 94 10^3/uL (150-450); Red Blood Count 2.91 10^6 /uL (3.70-4.87); Red Cell Distribution Width 14 % (10-15); White Blood Count 3.4 10^3/uL (3.5-10.8)
[2021-07-28] MEDS: Levothyroxine 100 MCG/5 ML VIAL IV SCH (06:07)
[2021-07-28 06:21] LABS: Calcium 7.7 mg/dL (8.6-10.3); Magnesium 1.6 mg/dL (1.9-2.7); Phosphorus 2.7 mg/dL (2.5-5.0); Potassium 3.9 mmol/L (3.5-5.0); eGFR CKD-EPI 95.9 (>60)
[2021-07-28] MEDS ORDERED: Furosemide 40 mg/4 ml IV VIAL IV SLOW PU ONE ×2 (07:03→08:31)
[2021-07-28] MEDS ORDERED: Magnesium Sulf 4 GM/100 ML IV 4,000 MG/100 ML BAG IVPB ONE (07:30)
[2021-07-28] MEDS: Multivitamins ADULT w/MIN LIQ 15 ML UDC NG TUBE SCH (07:42)
[2021-07-28] MEDS: Sucralfate 1 gm SUSP 1 GM/10 ML UDC NG TUBE SCH ×4 (07:43→20:06)
[2021-07-28] MEDS: CMCS: Venlafaxine 25 mg TAB (NF) NG TUBE SCH (09:29)
[2021-07-28] MEDS: cefTRIAXone 1 gm/50 mL D5W 1 GM/50 ML BAG IV SCH (11:12)
[2021-07-28] MEDS: Pantoprazole VIAL 40 MG VIAL IV SCH (20:06)
[2021-07-28] MEDS: Thiamine 100 MG/ML 2 ml VIAL 250 MG in NS 0.9% 100 ml BAG 100 ML IV SCH (22:24)
[2021-07-29] MEDS: Levothyroxine 100 MCG/5 ML VIAL IV SCH (05:23)
[2021-07-29 05:41] LABS: ABS Eosinophils 0.2 10^3/ul (0-0.6); ABS Monocytes 0.4 10^3/ul (0-0.8); ABS Neutrophils 1.7 10^3/ul (1.5-7.7); Eosinophil % 4.6 %; Hematocrit 30 % (35-47); Hemoglobin 10.3 g/dL (12.0-16.0); Lymphocyte % 29.8 %; Mean Corpuscular HGB Conc 34 g/dL (31-36); Mean Corpuscular Hemoglobin 35 pg (27-31); Mean Corpuscular Volume 102 fL (80-97); Mean Platelet Volume 8.8 fL (7.4-10.4); Platelet Count 119 10^3/uL (150-450); Red Blood Count 2.94 10^6 /uL (3.70-4.87); Red Cell Distribution Width 14 % (10-15); White Blood Count 3.3 10^3/uL (3.5-10.8)
[2021-07-29 06:33] LABS: Calcium 8.2 mg/dL (8.6-10.3); Magnesium 1.6 mg/dL (1.9-2.7); Phosphorus 3.1 mg/dL (2.5-5.0); Potassium 3.5 mmol/L (3.5-5.0); eGFR CKD-EPI 94.7 (>60)
[2021-07-29] MEDS ORDERED: Potassium Chloride LIQUID 20 MEQ/15 ML LIQUID PO ONE (07:48)
[2021-07-29] MEDS ORDERED: Magnesium Sulf 4 GM/100 ML IV 4,000 MG/100 ML BAG IVPB ONE (07:48)
[2021-07-29] MEDS: Multivitamins ADULT w/MIN LIQ 15 ML UDC NG TUBE SCH (08:15)
[2021-07-29] MEDS: Pantoprazole VIAL 40 MG VIAL IV SCH ×2 (08:16→20:08)
[2021-07-29] MEDS: CMCS: Venlafaxine 25 mg TAB (NF) NG TUBE SCH (08:17)
[2021-07-29] MEDS: Sucralfate 1 gm SUSP 1 GM/10 ML UDC NG TUBE SCH ×4 (08:17→20:08)
[2021-07-29] MEDS: cefTRIAXone 1 gm/50 mL D5W 1 GM/50 ML BAG IV SCH (10:53)
[2021-07-29] MEDS: Acetaminophen IV 1 GM/100ML 100 ML IV PRN (19:42)
[2021-07-29] MEDS: Thiamine 100 MG/ML 2 ml VIAL 250 MG in NS 0.9% 100 ml BAG 100 ML IV SCH (22:37)
[2021-07-30 06:40] LABS: ABS Eosinophils 0.2 10^3/ul (0-0.6); ABS Lymphocytes 0.9 10^3/ul (1.0-4.8); ABS Monocytes 0.5 10^3/ul (0-0.8); ABS Neutrophils 1.6 10^3/ul (1.5-7.7); Eosinophil % 5.4 %; Hematocrit 31 % (35-47); Lymphocyte % 28.3 %; Mean Corpuscular HGB Conc 35 g/dL (31-36); Mean Corpuscular Hemoglobin 36 pg (27-31); Mean Corpuscular Volume 102 fL (80-97); Mean Platelet Volume 8.3 fL (7.4-10.4); Nucleated Red Blood Cells % 0.1; Platelet Count 143 10^3/uL (150-450); Red Blood Count 3.09 10^6 /uL (3.70-4.87); Red Cell Distribution Width 14 % (10-15); White Blood Count 3.2 10^3/uL (3.5-10.8)
[2021-07-30 07:22] LABS: Calcium 8.4 mg/dL (8.6-10.3); Magnesium 1.6 mg/dL (1.9-2.7); Phosphorus 3.6 mg/dL (2.5-5.0); Potassium 3.8 mmol/L (3.5-5.0); eGFR CKD-EPI 95.9 (>60)
[2021-07-30] MEDS: CMCS: Venlafaxine 25 mg TAB (NF) NG TUBE SCH (08:34)
[2021-07-30] MEDS: Pantoprazole VIAL 40 MG VIAL IV SCH ×2 (08:34→20:31)
[2021-07-30] MEDS: Sucralfate 1 gm SUSP 1 GM/10 ML UDC NG TUBE SCH ×4 (08:34→20:31)
[2021-07-30] MEDS ORDERED: Magnesium Sulfate 2 gm BAG 2 GM/50 ML BAG IVPB ONE (09:00)
[2021-07-30 11:48] LABS: Albumin 2.9 g/dL (3.2-5.2); Albumin/Globulin Ratio 1.4 (1-3); Direct Bilirubin 0.3 mg/dL (0.03-0.18); Globulin 2.1 g/dL (2-4); Indirect Bilirubin 0.4 mg/dL (0.3-1.0); Total Bilirubin 0.7 mg/dL (0.2-1.0)
[2021-07-30] MEDS: Multivitamins ADULT w/MIN LIQ 15 ML UDC NG TUBE SCH (11:51)
[2021-07-30] MEDS: cefTRIAXone 1 gm/50 mL D5W 1 GM/50 ML BAG IV SCH (11:54)
[2021-07-30] MEDS: Thiamine 100 MG/ML 2 ml VIAL 250 MG in NS 0.9% 100 ml BAG 100 ML IV SCH (22:25)
[2021-07-31 06:44] LABS: Hematocrit 33 % (35-47); Hemoglobin 11.2 g/dL (12.0-16.0); Mean Corpuscular HGB Conc 34 g/dL (31-36); Mean Corpuscular Hemoglobin 35 pg (27-31); Mean Corpuscular Volume 102 fL (80-97); Mean Platelet Volume 8.7 fL (7.4-10.4); Platelet Count 174 10^3/uL (150-450); Red Blood Count 3.24 10^6 /uL (3.70-4.87); Red Cell Distribution Width 14 % (10-15); White Blood Count 4.3 10^3/uL (3.5-10.8)
[2021-07-31 06:56] LABS: Magnesium 1.6 mg/dL (1.9-2.7); Phosphorus 3.5 mg/dL (2.5-5.0)
[2021-07-31 07:32] LABS: Albumin 3.1 g/dL (3.2-5.2); Albumin/Globulin Ratio 1.3 (1-3); Calcium 8.8 mg/dL (8.6-10.3); Globulin 2.3 g/dL (2-4); Potassium 3.7 mmol/L (3.5-5.0); Total Bilirubin 0.7 mg/dL (0.2-1.0); Total Protein 5.4 g/dL (6.4-8.9); eGFR CKD-EPI 95.9 (>60)
[2021-07-31] MEDS: Pantoprazole VIAL 40 MG VIAL IV SCH ×2 (07:45→21:39)
[2021-07-31] MEDS: Multivitamins ADULT w/MIN LIQ 15 ML UDC NG TUBE SCH (07:45)
[2021-07-31] MEDS: Sucralfate 1 gm SUSP 1 GM/10 ML UDC NG TUBE SCH ×4 (07:45→21:39)
[2021-07-31] MEDS: CMCS: Venlafaxine 25 mg TAB (NF) NG TUBE SCH (07:46)
[2021-07-31] MEDS ORDERED: Magnesium Sulfate 2 gm BAG 2 GM/50 ML BAG IVPB ONE (08:21)
[2021-07-31] MEDS: Thiamine 100 MG/ML 2 ml VIAL 250 MG in NS 0.9% 100 ml BAG 100 ML IV SCH (23:02)
[2021-08-01 05:29] LABS: Hematocrit 31 % (35-47); Hemoglobin 10.3 g/dL (12.0-16.0); Mean Corpuscular HGB Conc 33 g/dL (31-36); Mean Corpuscular Hemoglobin 34 pg (27-31); Mean Corpuscular Volume 103 fL (80-97); Mean Platelet Volume 8.5 fL (7.4-10.4); Platelet Count 164 10^3/uL (150-450); Red Cell Distribution Width 14 % (10-15); White Blood Count 4.9 10^3/uL (3.5-10.8)
[2021-08-01 05:33] LABS: INR 1.1 (0.86-1.15)
[2021-08-01 05:58] LABS: Albumin 2.9 g/dL (3.2-5.2); Albumin/Globulin Ratio 1.4 (1-3); Calcium 8.5 mg/dL (8.6-10.3); Globulin 2.1 g/dL (2-4); Magnesium 1.7 mg/dL (1.9-2.7); Phosphorus 3.2 mg/dL (2.5-5.0); Potassium 4.2 mmol/L (3.5-5.0); Total Bilirubin 0.6 mg/dL (0.2-1.0); eGFR CKD-EPI 96.3 (>60)
[2021-08-01] MEDS ORDERED: Magnesium Sulfate 2 gm BAG 2 GM/50 ML BAG IVPB ONE (06:34)
[2021-08-01] MEDS: Sucralfate 1 gm SUSP 1 GM/10 ML UDC NG TUBE SCH ×4 (09:41→20:06)
[2021-08-01] MEDS: Pantoprazole VIAL 40 MG VIAL IV SCH ×2 (09:41→20:06)
[2021-08-01] MEDS: Multivitamins ADULT w/MIN LIQ 15 ML UDC NG TUBE SCH (09:41)
[2021-08-01] MEDS: CMCS: Venlafaxine 25 mg TAB (NF) NG TUBE SCH (09:41)
[2021-08-02 06:13] LABS: Hematocrit 33 % (35-47); Hemoglobin 10.6 g/dL (12.0-16.0); Mean Corpuscular HGB Conc 32 g/dL (31-36); Mean Corpuscular Hemoglobin 33 pg (27-31); Mean Corpuscular Volume 103 fL (80-97); Mean Platelet Volume 8.5 fL (7.4-10.4); Platelet Count 180 10^3/uL (150-450); Red Blood Count 3.18 10^6 /uL (3.70-4.87); Red Cell Distribution Width 14 % (10-15); White Blood Count 4.6 10^3/uL (3.5-10.8)
[2021-08-02 06:30] LABS: Calcium 8.8 mg/dL (8.6-10.3); Magnesium 1.7 mg/dL (1.9-2.7); Potassium 4.1 mmol/L (3.5-5.0)
[2021-08-02 06:36] LABS: eGFR CKD-EPI 93.6 (>60)
[2021-08-02] MEDS ORDERED: Magnesium Sulfate 2 gm BAG 2 GM/50 ML BAG IVPB ONE ×2 (07:04→09:00)
[2021-08-02] MEDS: Pantoprazole VIAL 40 MG VIAL IV SCH (09:41)
[2021-08-02] MEDS: CMCS: Venlafaxine 25 mg TAB (NF) NG TUBE SCH (09:42)
[2021-08-02] MEDS: Sucralfate 1 gm SUSP 1 GM/10 ML UDC NG TUBE SCH (09:55)
[2021-08-02] MEDS: Multivitamins ADULT w/MIN LIQ 15 ML UDC NG TUBE SCH (09:55)
[2021-08-02] MEDS ORDERED: Magnesium Hydroxide LIQ 30 ML UDC PO PRN (11:08)
[2021-08-02] MEDS ORDERED: Al Hydrox/Mg Hydrox/Simet LIQ 30 ML UDC PO PRN (11:11)
[2021-08-02] MEDS: Sucralfate 1 gm SUSP 1 GM/10 ML UDC PO SCH ×3 (11:49→20:00)
[2021-08-03 05:48] LABS: Hematocrit 32 % (35-47); Hemoglobin 10.5 g/dL (12.0-16.0); Mean Corpuscular HGB Conc 33 g/dL (31-36); Mean Corpuscular Hemoglobin 34 pg (27-31); Mean Corpuscular Volume 102 fL (80-97); Mean Platelet Volume 8.7 fL (7.4-10.4); Platelet Count 179 10^3/uL (150-450); Red Cell Distribution Width 14 % (10-15); White Blood Count 5.5 10^3/uL (3.5-10.8)
[2021-08-03 06:13] LABS: Calcium 8.6 mg/dL (8.6-10.3); Magnesium 1.7 mg/dL (1.9-2.7); eGFR CKD-EPI 94.7 (>60)
[2021-08-03] MEDS ORDERED: Magnesium Sulfate IV 3 GM in NS 0.9% 100 ml BAG 100 ML IVPB ONE (06:48)
[2021-08-03] MEDS ORDERED: Magnesium Sulfate 1 GM IV 1 GM/100 ML BAG IV ONE (07:00)
[2021-08-03] MEDS ORDERED: Magnesium Sulfate 2 GM IV (Premix) IVPB ONE (07:30)
[2021-08-03] MEDS ORDERED: Furosemide 20 mg/2 ml IV VIAL IV SLOW PU ONE (08:44)
[2021-08-03] MEDS: Venlafaxine XR 75 mg PO SCH (08:49)
[2021-08-03] MEDS: Sucralfate 1 gm SUSP 1 GM/10 ML UDC PO SCH ×4 (09:50→20:44)
[2021-08-03] MEDS: Multivitamins ADULT w/MIN LIQ 15 ML UDC PO SCH (09:56)
[2021-08-04 06:38] LABS: Calcium 8.8 mg/dL (8.6-10.3); Magnesium 1.7 mg/dL (1.9-2.7); eGFR CKD-EPI 94.3 (>60)
[2021-08-04] MEDS ORDERED: Magnesium Sulfate IV 3 GM in NS 0.9% 100 ml BAG 100 ML IVPB ONE (07:34)
[2021-08-04] MEDS: Sucralfate 1 gm SUSP 1 GM/10 ML UDC PO SCH ×4 (08:55→22:17)
[2021-08-04] MEDS: Multivitamins ADULT w/MIN LIQ 15 ML UDC PO SCH (08:55)
[2021-08-04] MEDS: Venlafaxine XR 75 mg PO SCH (08:56)
[2021-08-04] MEDS ORDERED: Magnesium Sulfate 1 GM IV 1 GM/100 ML BAG IV ONE (10:00)
[2021-08-04] MEDS ORDERED: Magnesium Sulfate 2 GM IV (Premix) IVPB ONE (10:00)
[2021-08-04] MEDS ORDERED: Magnesium Sulfate IV 1GM/100ML 1 GM/100 ML BAG IV ONE (11:00)
[2021-08-05 06:54] LABS: Hematocrit 32 % (35-47); Hemoglobin 10.7 g/dL (12.0-16.0); Mean Corpuscular HGB Conc 34 g/dL (31-36); Mean Corpuscular Hemoglobin 34 pg (27-31); Mean Corpuscular Volume 102 fL (80-97); Mean Platelet Volume 8.7 fL (7.4-10.4); Platelet Count 195 10^3/uL (150-450); Red Blood Count 3.12 10^6 /uL (3.70-4.87); Red Cell Distribution Width 14 % (10-15); White Blood Count 4.6 10^3/uL (3.5-10.8)
[2021-08-05] MEDS: Sucralfate 1 gm SUSP 1 GM/10 ML UDC PO SCH ×4 (07:51→19:58)
[2021-08-05] MEDS: Venlafaxine XR 75 mg PO SCH (07:52)
[2021-08-05] MEDS: Multivitamins ADULT w/MIN LIQ 15 ML UDC PO SCH (07:52)
[2021-08-05 07:56] LABS: Calcium 8.8 mg/dL (8.6-10.3); Magnesium 1.5 mg/dL (1.9-2.7)
[2021-08-05] MEDS ORDERED: Magnesium Sulf 4 GM/100 ML IV 4,000 MG/100 ML BAG IVPB ONE (09:00)
[2021-08-05] MEDS: Thiamine 100 MG/ML 2 ml VIAL 500 MG in NS 0.9% 250 ml 250 ML IV SCH (17:34)
[2021-08-06] MEDS: Sucralfate 1 gm SUSP 1 GM/10 ML UDC PO SCH ×4 (07:37→21:13)
[2021-08-06] MEDS: Thiamine 100 MG/ML 2 ml VIAL 500 MG in NS 0.9% 250 ml 250 ML IV SCH (08:48)
[2021-08-06] MEDS: Venlafaxine XR 75 mg PO SCH (08:52)
[2021-08-06] MEDS: Multivitamins ADULT w/MIN LIQ 15 ML UDC PO SCH (08:52)
[2021-08-06 08:59] LABS: Calcium 8.4 mg/dL (8.6-10.3); Magnesium 1.6 mg/dL (1.9-2.7); Phosphorus 3.3 mg/dL (2.5-5.0); Potassium 4.1 mmol/L (3.5-5.0); eGFR CKD-EPI 89.7 (>60)
[2021-08-07 06:58] LABS: Calcium 8.7 mg/dL (8.6-10.3); Magnesium 1.6 mg/dL (1.9-2.7); Phosphorus 3.1 mg/dL (2.5-5.0); eGFR CKD-EPI 92.2 (>60)
[2021-08-07] MEDS ORDERED: Magnesium Sulf 4 GM/100 ML IV 4,000 MG/100 ML BAG IVPB ONE (07:26)
[2021-08-07] MEDS: Venlafaxine XR 75 mg PO SCH (08:47)
[2021-08-07] MEDS: Thiamine 100 MG/ML 2 ml VIAL 500 MG in NS 0.9% 250 ml 250 ML IV SCH (08:47)
[2021-08-07] MEDS: Sucralfate 1 gm SUSP 1 GM/10 ML UDC PO SCH ×4 (08:48→21:16)
[2021-08-07] MEDS: Multivitamins ADULT w/MIN LIQ 15 ML UDC PO SCH (08:48)
[2021-08-08 06:44] LABS: ABS Basophils 0.1 10^3/ul (0-0.2); ABS Eosinophils 0.2 10^3/ul (0-0.6); ABS Monocytes 0.4 10^3/ul (0-0.8); ABS Neutrophils 1.9 10^3/ul (1.5-7.7); Eosinophil % 6.4 %; Hematocrit 31 % (35-47); Hemoglobin 10.4 g/dL (12.0-16.0); Lymphocyte % 27.1 %; Mean Corpuscular HGB Conc 34 g/dL (31-36); Mean Corpuscular Hemoglobin 34 pg (27-31); Mean Corpuscular Volume 101 fL (80-97); Mean Platelet Volume 9.1 fL (7.4-10.4); Nucleated Red Blood Cells % 0.1; Platelet Count 221 10^3/uL (150-450); Red Blood Count 3.07 10^6 /uL (3.70-4.87); Red Cell Distribution Width 14 % (10-15); White Blood Count 3.7 10^3/uL (3.5-10.8)
[2021-08-08 07:00] LABS: Calcium 8.8 mg/dL (8.6-10.3); Magnesium 1.6 mg/dL (1.9-2.7); Potassium 4.2 mmol/L (3.5-5.0); eGFR CKD-EPI 93.6 (>60)
[2021-08-08] MEDS ORDERED: Magnesium Sulf 4 GM/100 ML IV 4,000 MG/100 ML BAG IVPB ONE (09:00)
[2021-08-08] MEDS: Multivitamins ADULT w/MIN LIQ 15 ML UDC PO SCH (09:45)
[2021-08-08] MEDS: Sucralfate 1 gm SUSP 1 GM/10 ML UDC PO SCH ×2 (09:45→12:02)
[2021-08-08] MEDS: Venlafaxine XR 75 mg PO SCH (09:46)
[2021-08-08 09:57] LABS: Rapid COVID-19 Molecular Undetected (Undetected)
[2021-08-08 11:16] VITALS: BP 106/47
[2021-08-08] MEDS: Thiamine 100 MG/ML 2 ml VIAL 500 MG in NS 0.9% 250 ml 250 ML IV SCH (12:57)
[2021-08-11 08:16] LABS: 6-Thioguanine Nucleotides <31 (235 - 450)
== END 2021-08-08 14:35 | DRG 383 ==
LOC: ED 04:32 → EDHOLD 04:32 → MED 15:48 → ICU 20:15 → SUATTDRO 20:16 → MED 07-30 04:23
PROVIDERS: ADMIT Pediatrics; ATTEND Internal Medicine